=== PATIENT | male | born 1980 | race Caucasian/White ===

== ENCOUNTER 2025-01-17 06:20 | Day surgery (SDC) | payer BC, SELFPAY ==
[2025-01-17 07:14] LABS: Glucose - Point of Care 74 mg/dl (70-99)
[2025-01-17 08:09] LABS: Glucose - Point of Care 83 mg/dl (70-99)
== END 2025-01-17 09:45 | disposition home or self-care (01) ==
LOC: GI 06:20
PROVIDERS: ATTENDING PHYSICIAN Internal Medicine Gastroenterology
DX: Z12.11 Encounter for screening for malignant neoplasm of colon (principal); Z80.0 Family history of malignant neoplasm of digestive organs; K64.8 Other hemorrhoids; K57.30 Diverticulosis of large intestine without perforation or abscess without bleeding
CPT/HCPCS: G0105; 82962